=== PATIENT | male | born 1975 | race Caucasian/White ===

== ENCOUNTER 2022-06-11 09:45 | Emergency (ER) | payer BC ==
[2022-06-11 10:05] VITALS: BP 137/89; PULSE 71; RESP 18; TEMP 98.1; BMI 34.0
[2022-06-11] MEDS ORDERED: SODIUM CHLORIDE 1,000 ML IV STA (10:47)
[2022-06-11] MEDS ORDERED: ACETAMINOPHEN 1000 MG/100 ML BAG IVPB ONE (10:48)
[2022-06-11] MEDS ORDERED: ACETAMINOPHEN INJECTION 100 ML IVPB ONE (11:04)
[2022-06-11 11:30] LABS: INR 1.1 (0.83-1.09); PROTHROMBIN TIME (PATIENT) 12.8 SEC (9.7-13.0)
[2022-06-11 11:33] LABS: ACTIVATED PTT 29.2 SECONDS (25.2-36.5)
[2022-06-11 11:35] LABS: BASO % 1.1 % (0-2.0); HEMATOCRIT 44.2 % (35.4-49); LYMPH % 27.5 % (8-40); MCHC 33.8 g/dl (32.0-35.9); MEAN CELL VOLUME 85.9 fl (80-96); MEAN PLT VOLUME 9.9 fl (7.5-11.1); MONO % 8.6 % (3.8-10.2); NEUT % 61.8 % (42.8-82.8); PLATELET COUNT 249 10^3/uL (134-434); RBC 5.15 M/mm3 (4.00-5.60); RDW 13.7 % (11.9-15.9); WHITE BLOOD COUNT 9.6 K/mm3 (4.0-10.0)
[2022-06-11 11:45] LABS: BLOOD UREA NITROGEN 21.5 mg/dL (7-18); CALCIUM 9.5 mg/dL (8.5-10.1)
[2022-06-11 11:47] LABS: ALBUMIN 3.7 g/dl (3.4-5.0); MAGNESIUM 2.2 mg/dL (1.8-2.4)
[2022-06-11 11:50] LABS: CREATININE 0.9 mg/dL (0.55-1.3)
[2022-06-11 11:51] LABS: BILIRUBIN,TOTAL 0.6 mg/dL (0.2-1); TOT PROT 7.5 g/dl (6.4-8.2)
== END 2022-06-11 13:01 | disposition home or self-care (01) ==
LOC: JERFT 09:45
PROC: 3E033GC Introduction of Other Therapeutic Substance into Peripheral Vein, Percutaneous Approach (ICD-10-PCS; principal; 2022-06-11)
DX: S46.912A Strain of unspecified muscle, fascia and tendon at shoulder and upper arm level, left arm, initial encounter (principal); R07.89 Other chest pain; X58.XXXA Exposure to other specified factors, initial encounter
CPT/HCPCS: 36415; 71046-TC-FY; 73030-TC-LT-FY; 80053; 83735; 84484; 85025; 85610; 85730; 93005; 93010; 99285-25